=== PATIENT | female | born 1970 | race Caucasian/White ===

== ENCOUNTER 2022-08-10 14:54 | Outpatient (CLI) | payer OTHER, SELFPAY ==
--- NOTE | 2022-08-10 15:00 | CRLHL7_ITS ---
For Patients: As a result of the Century Cures Act, medical imaging exams and procedure reports are released immediately into your electronic medical record. You may view this report before your referring provider. If you have questions, please contact your health care provider. BILATERAL SCREENING MAMMOGRAM WITH COMPUTER-AIDED DETECTION AND TOMOSYNTHESIS TECHNIQUE: CC and MLO views were obtained. These mammographic images have been obtained using full-field digital technique. These mammographic images were interpreted with the benefit of computer-aided detection. Breast Tomosynthesis was used in this interpretation. COMPARISON FILM: 10/16/20, 05/15/19, 10/12/16. FINDINGS: The breasts are heterogeneously dense, which may obscure small masses IMPRESSION: There is no radiographic evidence for malignancy. ASSESSMENT: BI-RADS Category 1: Negative RECOMMENDATION: Routine screening mammogram in 1 year. A lay language report of this examination will be provided to the patient. Solo Harkins M.D. Diagnostic Radiologist [email or web address] Transcribed: 2:10 pm DW/Dictated by: Solo Harkins MD @ 08/11/2022 8:26:00 AM (Electronically Signed)
== END 2022-08-10 14:55 | disposition home or self-care (01) ==
LOC: MAMMO 14:55
DX: Z12.31 Encounter for screening mammogram for malignant neoplasm of breast (principal); R92.2 Inconclusive mammogram
CPT/HCPCS: 77063; 77067

== ENCOUNTER 2023-12-07 07:23 | Outpatient (CLI) | payer BC, SELFPAY ==
--- NOTE | 2023-12-07 09:00 | W.ANESCHARGE ---
Anesthesia Charges Start Date/Time Anesthesia Start Date: 12/07/23 Anesthesia Start Time: 08:20 Stop Date/Time Anesthesia Stop Date: 12/07/23 Anesthesia Stop Time: 08:55
--- NOTE | 2023-12-07 09:19 | W.ANESCHARGE ---
Anesthesia Charges Start Date/Time Anesthesia Start Date: 12/07/23 Anesthesia Start Time: 08:20 Stop Date/Time Anesthesia Stop Date: 12/07/23 Anesthesia Stop Time: 08:55
--- NOTE | 2024-01-10 13:29 | W.ANESCHARGE ---
Anesthesia Charges Start Date/Time Anesthesia Start Date: 12/07/23 Anesthesia Start Time: 08:20 Stop Date/Time Anesthesia Stop Date: 12/07/23 Anesthesia Stop Time: 08:55
== END 2023-12-07 07:24 | disposition home or self-care (01) ==
PROVIDERS: PCP Registered Nurse; Visit Provider Surgery
DX: Z12.11 Encounter for screening for malignant neoplasm of colon (principal); K63.5 Polyp of colon
CPT/HCPCS: 00811; 45385; 88305; J2704

== ENCOUNTER 2024-01-31 07:48 | Outpatient (CLI) | payer BC, SELFPAY ==
--- NOTE | 2024-01-31 08:00 | CRLHL7_ITS ---
For Patients: As a result of the Century Cures Act, medical imaging exams and procedure reports are released immediately into your electronic medical record. You may view this report before your referring provider. If you have questions, please contact your health care provider. INDICATION: Right sided pelvic fullness COMPARISON: none TECHNIQUE: 2D sabillon scale and color Doppler images were acquired of the pelvis using a transabdominal and transvaginal approach. FINDINGS: Sonographic images demonstrate a normal size and smooth outer contour of the uterus. Uterus measures 6.8 cm in length by 3.7 cm in AP diameter by 4.4 cm in transverse dimension. The myometrium has a normal uniform echotexture. The endometrial lining measures 2 mm in composite thickness. Incidental echogenic foci associated with the endometrium. The right ovary measures 2.1 x 0.9 x 2.0 cm in size and the left ovary measures 2.6 x 1.0 x 1.0 cm. The ovaries demonstrate normal arterial and venous blood flow on color Doppler analysis. There are no suspicious fluid collections within the cul-de-sac. IMPRESSION: Normal ovaries. No adnexal mass or excess pelvic free fluid. No uterine fibroid. Dictated by Solo Harkins MD @ 02/01/2024 9:58:53 AM (Electronically Signed)
== END 2024-01-31 07:49 | disposition home or self-care (01) ==
LOC: US 07:50
PROVIDERS: PCP Student in an Organized Health Care Education/Training Program; Visit Provider Registered Nurse
DX: R19.00 Intra-abdominal and pelvic swelling, mass and lump, unspecified site (principal)
CPT/HCPCS: 76830; 76856

== ENCOUNTER 2024-05-08 09:08 | Outpatient (CLI) | payer BC, SELFPAY ==
--- NOTE | 2024-05-08 09:15 | CRLHL7_ITS ---
For Patients: As a result of the Century Cures Act, medical imaging exams and procedure reports are released immediately into your electronic medical record. You may view this report before your referring provider. If you have questions, please contact your health care provider. BILATERAL SCREENING MAMMOGRAM WITH COMPUTER-AIDED DETECTION AND TOMOSYNTHESIS TECHNIQUE: CC and MLO views were obtained. These mammographic images have been obtained using full-field digital technique. These mammographic images were interpreted with the benefit of computer-aided detection. Breast Tomosynthesis was used in this interpretation. COMPARISON FILM: 08/10/22, 10/16/20, 05/15/19. FINDINGS: The breasts are heterogeneously dense, which may obscure small masses. IMPRESSION: There is no radiographic evidence for malignancy. ASSESSMENT: BI-RADS Category 1: Negative RECOMMENDATION: Routine screening mammogram in 1 year. A lay language report of this examination will be provided to the patient. Solo Harkins M.D. Diagnostic Radiologist [email or web address] SP/Dictated by: Solo Harkins MD @ 05/09/2024 10:10:00 AM (Electronically Signed)
== END 2024-05-08 09:09 | disposition home or self-care (01) ==
LOC: MAMMO 09:09
PROVIDERS: PCP Student in an Organized Health Care Education/Training Program; Visit Provider Registered Nurse
DX: Z12.31 Encounter for screening mammogram for malignant neoplasm of breast (principal); R92.2 Inconclusive mammogram
CPT/HCPCS: 77063; 77067

== ENCOUNTER 2025-06-25 13:50 | Outpatient (CLI) | payer BC, SELFPAY ==
--- NOTE | 2025-06-25 14:00 | CRLHL7_ITS ---
For Patients: As a result of the Century Cures Act, medical imaging exams and procedure reports are released immediately into your electronic medical record. You may view this report before your referring provider. If you have questions, please contact your health care provider. INDICATION: BILATERAL SCREENING MAMMOGRAM, ASYMPTOMATIC 54 Y/O FEMALE COMPARISON: 05/08/2024, 08/10/2022, 10/16/2020 TECHNIQUE: Digital mammogram in CC and MLO projections including computer-aided detection (CAD) and tomosynthesis. BREAST COMPOSITION: The breasts are heterogeneously dense, which may obscure small masses. FINDINGS: No suspicious findings. ASSESSMENT: BI-RADS 1 Negative RECOMMENDATION: Annual screening mammogram. A lay language report of this examination will be provided to the patient. Dictated by: Solo Harkins MD @ 06/26/2025 08:54:11 (Electronically Signed)
== END 2025-06-25 13:51 | disposition home or self-care (01) ==
LOC: MAMMO 13:51
PROVIDERS: PCP Student in an Organized Health Care Education/Training Program; Visit Provider Student in an Organized Health Care Education/Training Program
DX: Z12.31 Encounter for screening mammogram for malignant neoplasm of breast (principal); R92.333 Mammographic heterogeneous density, bilateral breasts
CPT/HCPCS: 77063; 77067